=== PATIENT | male | born 1980 | race Caucasian/White ===

== ENCOUNTER 2016-11-26 18:56 | Emergency (ER) | payer SELFPAY ==
[~2016-11-26] VITALS: Ht 175.3 cm; Wt 118.8 kg
[~2016-11-26 18:56] MED LIST: CIPRO500 MG PO; FLAGYL500 MG PO; TORADOL10 MG PO; ZOFRAN4 MG PO
[2016-11-26 20:13] LABS: HEMATOCRIT 45.1 % (38.0-50.0); MCH 28.5 PG (29.0-34.0); MCHC 35.3 G/DL (30.0-36.0); MEAN PLAT.VOLUME 9.8 uM^3 (9.0-12.4); PLATELET COUNT 278 K/uL (156-360); RBC DIS.WIDTH-CV 13.3 % (11.8-14.6); RBC DIS.WIDTH-SD 38.3 % (39-53); RED BLOOD COUNT 5.57 M/uL (4.00-5.50); WHITE BLOOD COUNT 11.4 K/uL (4.1-10.2)
[2016-11-26 20:28] LABS: CHLORIDE 106 mEq/L (99-109); POTASSIUM 4.2 mEq/L (3.7-5.4); SODIUM 138 mEq/L (136-147)
[2016-11-26 20:31] LABS: GLUCOSE 101 mg/dL (70-99)
[2016-11-26 20:32] LABS: ANION GAP 8 MEQ/L (2-14)
[2016-11-26 20:33] LABS: TOTAL BILIRUBIN 1.1 mg/dL (0.0-1.0)
[2016-11-26 20:34] LABS: ALKALINE PHOSPHATASE 89 IU/L (3-129); GFR ESTIMATE (CALCULATED) > 59 mL/min/
[2016-11-26 20:35] LABS: UREA NITROGEN (BUN) 13 mg/dL (9-23)
[2016-11-26 21:38] LABS: EOSINOPHIL (%) 2.6 % (0-5); EOSINOPHIL COUNT 0.3 K/uL (0-0.3); IMMATURE GRANULOCYTE (%) 0.3 % (0.0-0.7); IMMATURE GRANULOCYTE COUNT 0.3 K/uL; LYMPHOCYTE COUNT 1.6 K/uL (1.0-2.8); MONOCYTE (%) 6.8 % (3-12); MONOCYTE COUNT 0.8 K/uL (0-0.8); NEUTROPHIL (%) 75.4 % (45-76); NEUTROPHIL COUNT 8.5 K/uL (1.8-6.4)
[2016-11-26 21:39] LABS: LIPASE 22 U/L (1.0-51.0)
[2016-11-27 00:10] LABS: INFLUENZA A VIRAL ANTIGEN NEGATIVE; INFLUENZA B VIRAL ANTIGEN NEGATIVE
[2016-11-27] MEDS ORDERED: VIBRAMYCIN100 MG PO (00:40)
[2016-11-27] MEDS ORDERED: MUCINEX D ER T1 EACH PO (00:40)
[2016-11-27] MEDS ORDERED: FIORICET 50-301 EACH PO (00:40)
[2016-11-27] MEDS ORDERED: FLONASE16 G1 BOTH NARES (00:40)
[2016-11-27] MEDS ORDERED: TESSALON PERLE100 MG PO (00:40)
[2016-11-27] MEDS ORDERED: MOTRIN800 MG PO (00:40)
[2016-11-27 00:49] VITALS: BP 116/50
[2016-11-27 01:25] LABS: ADD MIUA? YES; BILIRUBIN NEGATIVE; BLOOD NEGATIVE; COLOR YELLOW ((YELLOW)); GLUCOSE (STRIP) NEGATIVE; KETONES NEGATIVE; LEUKOCYTES NEGATIVE; NITRITE NEGATIVE; PROTEIN (STRIP) NEGATIVE; SPECIFIC GRAVITY 1.023 (1.000-1.030)
[2016-11-27 01:40] LABS: BACTERIA NONE SEEN /HPF; EPITHELIAL CELLS NONE SEEN /HPF; MUCUS 4+ /LPF; RED BLOOD CELLS 0-5 /HPF (0-5); WHITE BLOOD CELLS 0-5 /HPF (0-5)
== END 2016-11-27 00:50 | disposition home or self-care (01) ==
LOC: EME 18:56
PROVIDERS: Physician Assistant
DX: J32.9 Chronic sinusitis, unspecified (principal); R11.2 Nausea with vomiting, unspecified; R19.7 Diarrhea, unspecified; J40 Bronchitis, not specified as acute or chronic; E86.0 Dehydration
CPT/HCPCS: 71020; 74176; 80053; 81003; 83690; 85025; 85027; 87502; 99281; 99285; J1200; J1885; J2765; J2930; J7030

== ENCOUNTER 2018-01-26 19:09 | Emergency (ER) | payer SELFPAY ==
[~2018-01-26] VITALS: Ht 170.2 cm; Wt 119.5 kg
[~2018-01-26 19:09] MED LIST changes: +FIORICET 50-301 EACH PO; +FLONASE16 G1 BOTH NARES; +MOTRIN800 MG PO; +MUCINEX D ER T1 EACH PO; +TESSALON PERLE100 MG PO; +VIBRAMYCIN100 MG PO
[2018-01-26 19:44] LABS: HEMATOCRIT 49.6 % (38.0-50.0); MCH 28.4 PG (29.0-34.0); MCHC 34.3 G/DL (30.0-36.0); MCV 82.8 FL (86-99); PLATELET COUNT 284 K/uL (156-360); RBC DIS.WIDTH-CV 12.8 % (11.8-14.6); RBC DIS.WIDTH-SD 38.6 % (39-53); RED BLOOD COUNT 5.99 M/uL (4.00-5.50); WHITE BLOOD COUNT 7.4 K/uL (4.1-10.2)
[2018-01-26 19:52] LABS: ALBUMIN 4.4 g/dL (3.2-4.8); CHLORIDE 103 mEq/L (99-109); SODIUM 140 mEq/L (136-147)
[2018-01-26 19:54] LABS: GLUCOSE 105 mg/dL (70-99); TOTAL PROTEIN 7.1 g/dL (6.4-8.3)
[2018-01-26 19:56] LABS: TOTAL BILIRUBIN 1.2 mg/dL (0.0-1.0)
[2018-01-26 19:58] LABS: ALKALINE PHOSPHATASE 80 IU/L (3-129); CREATININE 1.2 mg/dL (0.6-1.3); GFR ESTIMATE (CALCULATED) > 59 mL/min/ (58.99-99999)
[2018-01-26 19:59] LABS: UREA NITROGEN (BUN) 15 mg/dL (9-23)
[2018-01-26 20:00] LABS: AST (GOT) 18 IU/L (2-34)
[2018-01-26 20:01] LABS: ALT (GPT) 36 IU/L (3-49)
[2018-01-26 20:04] LABS: TROP-I INTERPRETATION NEGATIVE; TROPONIN-I < 0.01 ng/mL (0.0-0.30)
[2018-01-26] MEDS ORDERED: ZOFRAN ODT8 MG PO (22:39)
[2018-01-26] MEDS ORDERED: BENTYL20 MG PO (22:39)
[2018-01-26 22:57] VITALS: BP 114/73
== END 2018-01-26 22:57 | disposition home or self-care (01) ==
LOC: EME 19:09
DX: K92.2 Gastrointestinal hemorrhage, unspecified (principal); R11.2 Nausea with vomiting, unspecified; R51 Headache; Z53.21 Procedure and treatment not carried out due to patient leaving prior to being seen by health care provider; J45.909 Unspecified asthma, uncomplicated; K21.9 Gastro-esophageal reflux disease without esophagitis; M10.9 Gout, unspecified; Z88.5 Allergy status to narcotic agent
CPT/HCPCS: 71046; 80053; 84484; 85027; 93005; J0780; J1885; J7030